=== PATIENT | male | born 1970 | race Caucasian/White ===

== ENCOUNTER 2021-08-02 11:36 | Inpatient (IN) | payer MEDICAID ==
[~2021-08-02] VITALS: Ht 170.2 cm; Wt 103.0 kg
--- NOTE | 2021-08-02 11:40 | NUR ---
AAOx3, BIBRA 81 C/O ELEVATED HEART RATE (SVT PER EMS) ADENOSINE GIVEN 6MG AND 12MG CONVERTED. BG 118. SKIN IS WARM AND DIAPHORETIC. RESP IS EVEN AND UNLABORED WITH NAD NOTED. PLACED ON DIAL PRINTER --- NSR. DR ANDERSON AT FOR EVAL.
--- NOTE | 2021-08-02 11:45 | NUR ---
CXR IN PROGRESS AT BS.
--- NOTE | 2021-08-02 11:45 | NUR ---
BLOOD DRAWN SENT TO THE LAB.
[2021-08-02] MEDS ORDERED: MAGN400T26 PO (12:03)
[2021-08-02] MEDS ORDERED: DILT30TA2 PO (12:03)
[2021-08-02 12:05] LABS: BASOPHILS # (AUTO) 0.1 K/uL (0.0-0.2); BASOPHILS % (AUTO) 0.8 % (0.0-2.0); EOSINOPHILS % (AUTO) 0.1 % (0.0-6.0); HEMATOCRIT 43 % (39-51); HEMOGLOBIN 14.5 g/dL (13.5-17.5); LYMPHOCYTES # (AUTO) 2.1 K/uL (0.8-4.8); LYMPHOCYTES % (AUTO) 26.8 % (20.0-44.0); MEAN CORPUSCULAR HGB CONC 34 g/dl (31.0-36.0); MEAN CORPUSCULAR VOLUME 93 fL (80-96); MONOCYTES # (AUTO) 0.6 K/uL (0.1-1.30); MONOCYTES % (AUTO) 7.3 % (2.0-12.0); NEUTROPHILS # (AUTO) 5.1 K/uL (1.8-8.9); PLATELET COUNT (AUTO) 291 K/uL (150-450); RED BLOOD CELL COUNT(AUTO) 4.58 MIL/uL (4.5-6.0); WHITE BLOOD COUNT (AUTO) 7.8 K/uL (4.3-11.0)
[2021-08-02 12:16] LABS: CALCIUM, SERUM 9.2 mg/dL (8.5-10.1); CARBON DIOXIDE 24 mmol/L (21-32); CHLORIDE 107 mmol/L (98-107); CREATININE 1.6 mg/dL (0.6-1.3); GLUCOSE 83 mg/dL (74-106); POTASSIUM 3.9 mmol/L (3.5-5.1); SODIUM SERUM 144 mmol/L (136-145); UREA NITROGEN, BLOOD 15 mg/dL (7-18)
--- NOTE | 2021-08-02 12:42 | NUR ---
[facility] AT FOR BLOOD DRAW (TROP).
--- NOTE | 2021-08-02 13:25 | NUR ---
MOVE SHEET SUBMITTED AND CALLED FOR TELE BED.
[2021-08-02] MEDS ORDERED: ACETAMINOPHEN ES 500 MG TABLET ONE (13:29)
--- NOTE | 2021-08-02 13:29 | NUR ---
COVID SWAB DONE AND SENT TO LAB
[2021-08-02] MEDS ORDERED: ACETAMINOPHEN ES 500 MG TABLET PO ONE (13:30)
[2021-08-02] MEDS ORDERED: METOPROLOL TARTRATE 50 MG TABLET ONE (13:30)
[2021-08-02] MEDS ORDERED: METOPROLOL TARTRATE 25 MG TABLET PO ONE (13:30)
--- NOTE | 2021-08-02 13:47 | NUR ---
[facility] CALLED [address] VENDOR PAGED.
--- NOTE | 2021-08-02 13:55 | NUR ---
RECEIVED A CALL FROM MARGOTH FROM LAB. PATIENT REPEAT TROP [address] DINH MADE AWARE
[2021-08-02] MEDS ORDERED: ONDANSETRON HCL/PF 4 MG/2 ML VIAL IVP PRN (14:30)
[2021-08-02] MEDS ORDERED: NITROGLYCERIN 0.4 MG/TAB BOTTLE SL PRN ×2 (14:30→16:30)
[2021-08-02] MEDS ORDERED: MAG HYDROX/AL HYDROX/SIMETH 30 ML UDC PO PRN (14:30)
[2021-08-02] MEDS ORDERED: ACETAMINOPHEN 325 MG TABLET PO PRN (14:30)
[2021-08-02] MEDS ORDERED: DOCUSATE SODIUM 100 MG CAPSULE PO PRN (14:30)
[2021-08-02] MEDS ORDERED: MORPHINE SULFATE INJ 2 MG/ML DISP.SYRIN IV PRN (14:30)
--- NOTE | 2021-08-02 14:50 | NUR ---
GOT BED 329 PENDING COVID RESULT.
--- NOTE | 2021-08-02 15:09 | NUR ---
REPORT GIVEN TO CORETTA ENAMORADO OF TELE UNIT. AWAITING RAPID COVID RESULT.
--- NOTE | 2021-08-02 15:50 | NUR ---
WHEELED OUT VIA JON FOR CTA
[2021-08-02] MEDS ORDERED: IOHEXOL-350 100 ML VIAL IV ONE (15:53)
[2021-08-02] MEDS ORDERED: IV NS 0.9% 250 ML IV ONE (15:53)
[2021-08-02] MEDS ORDERED: METOPROLOL TARTRATE INJ 5 MG/5 ML AMPUL ONE (16:14)
[2021-08-02] MEDS ORDERED: METOPROLOL TARTRATE INJ 5 MG/5 ML AMPUL IVP PRN (16:30)
--- NOTE | 2021-08-02 16:46 | NUR ---
PATIENT BACK FROM CTA
[2021-08-02] MEDS ORDERED: DILTIAZEM HCL 30 MG TABLET PO SCH (17:00)
[2021-08-02 17:10] VITALS: BP 132/80
--- NOTE | 2021-08-02 17:10 | NUR ---
BICYCLE COURIERBORDER MEASURER AND CUTTER NOTES RECEIVED PATIENT FROM ER ENDORSED BY KELSEA MAC. PATIENT IS AWAKE AND A/O X4, ISRAELI SPEAKING. ON ROOM AIR TOLERATING WELL. NO SOB NOTED. NOT IN DISTRESS. WITH NO COMPLAINTS OF PAIN OR DISCOMFORT AT THIS TIME. ON TELE MONITOR CURRENTLY READING SINUS BRADYCARDIA AT 59BPM. SKIN IS INTACT. SAFETY MEASURES IN PLACED. CALL LIGHT WITHIN REACH. BED ON LOWEST LOCKED POSITION, SIDE RAILS UP X2. WILL CONTINUE TO MONITOR.
--- NOTE | 2021-08-02 17:16 | NUR ---
HEART SCAN WAS COMPLETED BUT PATIENT UNABLE TO FOLLOW BREATHING INSTRUCTION DUE TO LANGUAGE BARRIER, IMAGES ARE NON DIAGNOSTIC AND THE PT. CREATININE IS 1.6, SO I CALLED THE RADIOLOGIST "DR. FLYNN" AND WILL TRY TO DO IT AGAIN TOMORROW.
[2021-08-02] MEDS: METOPROLOL TARTRATE 50 MG TABLET PO SCH (18:00)
[2021-08-02 18:05] VITALS: BP 132/80
--- NOTE | 2021-08-02 19:30 | NUR ---
JUNIOR WEB DEVELOPER CLOSING NOTES PATIENT IS AWAKE AND A/O X4, JAPANESE SPEAKING. ON ROOM AIR TOLERATING WELL. NO SOB NOTED. NOT IN DISTRESS. WITH NO COMPLAINTS OF PAIN OR DISCOMFORT AT THIS TIME. ON TELE MONITOR CURRENTLY READING SINUS BRADYCARDIA AT 58BPM. SAFETY MEASURES IN PLACED. CALL LIGHT WITHIN REACH. BED ON LOWEST LOCKED POSITION, SIDE RAILS UP X2. WILL ENDORSE TO NEXT SMILE.
--- NOTE | 2021-08-02 19:30 | NUR ---
RN OPENING NOTE PATIENT IN BED, AWAKE, PATIENT IS A/O X 4, ABLE TO MAKE NEEDS KNOWN. PATIENT CURRENTLY ON RA, TOLERATING WELL. BREATHING EVEN AND UNLABORED. TELE MONITOR READS SR WITH PAC 65 BPM. PATIENT HAS A RAC 18G SALINE LOCKED AT THIS TIME. PATIENT KAVITHA AND PAIN/CHEST PAIN. SAFETY MEASURES IN PLACE: BED LOCKED AND IN LOWEST POSITION, CALL LIGHT WITHIN REACH, SIDE RAILS UP. WILL MONITOR PATIENT CLOSELY.
[2021-08-02 20:00] VITALS: BP 104/80
[2021-08-02 21:39] LABS: THYROID STIMULATING HORMONE 15.849 uIU/mL (0.358-3.74)
[2021-08-02] MEDS: ENOXAPARIN SODIUM 100 MG/ML DISP.SYRIN SQ SCH (21:41)
--- NOTE | 2021-08-02 22:30 | NUR ---
RN NOTE DR. OWENS INFORMED OF INCREASED TROPONIN OF 828. PER MD, CALL PERMACULTURE DESIGNER AND NO NEW ORDERS.
--- NOTE | 2021-08-02 23:05 | NUR ---
RN NOTE DR QUIÑONEZ ERP IMPLEMENTATION CONSULTANT INFORMED OF INCREASED TROPONIN 828, NO NEW ORDERS.
[2021-08-03] VITALS: BP 97/43
[2021-08-03 04:00] VITALS: BP 116/74
[2021-08-03] MEDS: METOPROLOL TARTRATE 50 MG TABLET PO SCH ×3 (05:29→11:28)
--- NOTE | 2021-08-03 05:30 | NUR ---
RN NOTE METOPROLOL HELD D/T HR 43-45 BPM
[2021-08-03 06:53] LABS: BASOPHILS % (AUTO) 0.2 % (0.0-2.0); EOSINOPHILS % (AUTO) 0.5 % (0.0-6.0); HEMATOCRIT 41 % (39-51); HEMOGLOBIN 13.7 g/dL (13.5-17.5); LYMPHOCYTES # (AUTO) 2.7 K/uL (0.8-4.8); LYMPHOCYTES % (AUTO) 33.6 % (20.0-44.0); MEAN CORPUSCULAR HGB CONC 33 g/dl (31.0-36.0); MEAN CORPUSCULAR VOLUME 94 fL (80-96); MONOCYTES # (AUTO) 0.6 K/uL (0.1-1.30); MONOCYTES % (AUTO) 7.6 % (2.0-12.0); NEUTROPHILS # (AUTO) 4.6 K/uL (1.8-8.9); NEUTROPHILS % (AUTO) 58.1 % (43.0-81.0); PLATELET COUNT (AUTO) 290 K/uL (150-450); RED BLOOD CELL COUNT(AUTO) 4.38 MIL/uL (4.5-6.0)
--- NOTE | 2021-08-03 07:45 | NUR ---
RN OPENING NOTE PATIENT IN BED RESTING, AWAKE, A/O X4. NO S/S OF PAIN NOTED AT THIS TIME. ON ROOM AIR, NO DISTRESS OR SHORTNESS OF BREATH NOTED. PATIENT ON TELE MONITOR WITH CURRENT READING OF SB - SR AND HR OF 43-70, NO CARDIAC DISTRESS NOTED. IV ACCESS RAC #18G. FALL AND SAFETY MEASURES IN PLACE, BED ALARM ON, BED IN LOW AND LOCK POSITION, CALL LIGHT AND TABLE WITHIN EASY REACH, SIDE RAILS UP X2. WILL CONTINUE TO MONITOR.
[2021-08-03 07:48] LABS: ALBUMIN 3.3 g/dL (3.4-5.0); BILIRUBIN,TOTAL 0.6 mg/dL (0.2-1.0); CALCIUM, SERUM 8.7 mg/dL (8.5-10.1); MAGNESIUM 2.1 mg/dL (1.8-2.4); PHOSPHORUS 4.1 mg/dL (2.5-4.9); POTASSIUM 4.1 mmol/L (3.5-5.1); TOTAL PROTEIN, SERUM 6.9 g/dL (6.4-8.2)
[2021-08-03 08:40] VITALS: BP 139/88
[2021-08-03] MEDS: ENOXAPARIN SODIUM 100 MG/ML DISP.SYRIN SQ SCH (08:59)
[2021-08-03] MEDS ORDERED: ATORVASTATIN 10 MG TABLET PO SCH (09:00)
[2021-08-03] MEDS ORDERED: MAGNESIUM OXIDE 400 MG TABLET PO SCH (09:00)
[2021-08-03] MEDS ORDERED: PROPRANOLOL LA 60 MG CAP.SA.24H PO SCH (09:00)
[2021-08-03] MEDS ORDERED: ASPIRIN 81 MG TAB.CHEW PO SCH (09:00)
[2021-08-03] MEDS ORDERED: ENOXAPARIN SODIUM 60 MG/0.6 ML DISP.SYRIN SQ SCH (09:00)
[2021-08-03 10:18] LABS: THYROID STIMULATING HORMONE 3.135 uIU/mL (0.358-3.74)
[2021-08-03] MEDS ORDERED: METOPROLOL TARTRATE INJ 5 MG/5 ML AMPUL IVP PRN (10:30)
[2021-08-03] MEDS ORDERED: NITROGLYCERIN 0.4 MG/TAB BOTTLE SL PRN (10:30)
[2021-08-03] MEDS ORDERED: METOPROLOL TARTRATE 50 MG TABLET PO ONE (10:30)
--- NOTE | 2021-08-03 11:29 | NUR ---
RN NOTE PATIENT 1200 METOPROLOL WAS HELD. PATIENT HAD A ONE TIME ORDER OF METOPROLOL AT 10:30, PHARMACY CALLED AND SAID TO HOLD THE 12:00 METOPROLOL DOSE.
[2021-08-03 12:02] VITALS: BP 115/69
[2021-08-03] MEDS ORDERED: METOPROLOL TARTRATE INJ 5 MG/5 ML AMPUL ONE (12:28)
[2021-08-03] MEDS ORDERED: NITROGLYCERIN 0.4 MG/TAB BOTTLE ONE (12:28)
--- NOTE | 2021-08-03 15:46 | NUR ---
HYDRO PLANT TECHNICIAN NOTE PATIENT LEFT HOSPITAL AMA IN STABLE MEDICAL CONDITION, DOCTOR INFORMED. A/O X4. V/S TAKEN, STABLE AND RECORDED. NO IV ACCESS. REFUSED SKIN ASSESSMENT BUT PER PREVIOUS ASSESSMENT SKIN IS INTACT. NAME ARM BAND REMOVED. ALL BELONGINGS CHECKED AND SIGNED. HEALTH TEACHING AND DISCHARGE INSTRUCTIONS GIVEN AND VERBALIZED UNDERSTANDING. PATIENT WAS TOLD ABOUT THE RISK AND CONSEQUENCES INVOLVED IN LEAVING THE HOSPITAL, THE BENEFITS OF CONTINUE TREATMENT AND HOSPITALIZATION. PATIENT LEFT UNIT AMBULATING WITH NO SIGNS OF DISTRESS, ACCOMPANIED BY RN TO THE LOBBY. WEATHER OBSERVER CONSULT PROVIDED BEFORE DISCHARGE. PATIENT WENT HOME WITH . CHARGE NURSE AWARE OF DISCHARGED.
== END 2021-08-03 17:30 | disposition left against medical advice (07) | DRG 201 ==
LOC: ER 11:44 → TELE 15:29
PROVIDERS: ADMIT Registered Nurse; ATTEND Student in an Organized Health Care Education/Training Program
PROC: 5A2204Z Restoration of Cardiac Rhythm, Single (ICD-10-PCS; principal; 2021-08-02)
DX: I47.1 Supraventricular tachycardia (principal); I21.A1 Myocardial infarction type 2; N18.9 Chronic kidney disease, unspecified; E66.01 Morbid (severe) obesity due to excess calories; Z68.35 Body mass index [BMI] 35.0-35.9, adult; Z79.899 Other long term (current) drug therapy; G47.33 Obstructive sleep apnea (adult) (pediatric)
CPT/HCPCS: 36415; 71045-TC; 80048-TC; 80053-TC; 80061-TC; 83735-TC; 84100-TC; 84439-TC; 84443-TC; 84484-TC; 85025-TC; 87081-TC; 93307-TC; 94799-TC; G0378; J1650; J3490; J7050; Q9967